=== PATIENT | female | born 1970 | race Two or more races ===

== ENCOUNTER 2017-05-03 06:28 | Day surgery (SDC) | payer BC ==
[2017-05-01 17:07] LABS: BASOPHILS # (AUTO) 0.4 K/uL (0.00-0.22); EOSINOPHILS # (AUTO) 0.1 K/uL (0-0.4); HEMATOCRIT 39.7 % (36-52); HEMOGLOBIN 13.6 g/dL (12.0-18.0); LYMPHOCYTES # (AUTO) 2.4 K/uL (2.0-11.5); MEAN CORPUSCULAR HEMOGLOBIN 31 pg (27-31); MEAN CORPUSCULAR HGB CONC 34 g/dL (33-37); MEAN CORPUSCULAR VOLUME 89 fL (80-94); MONOCYTES # (AUTO) 0.6 K/uL (0.8-1.0); NEUTROPHILS # (AUTO) 3.1 K/uL (1.8-7.7); PLATELET COUNT (AUTO) 294 K/uL (140-450); RED BLOOD CELL COUNT(AUTO) 4.45 MIL/uL (4.20-6.10); RED CELL DISTRIBUTION WIDTH 11.7 % (11.6-13.7); WHITE BLOOD COUNT (AUTO) 6.6 K/uL (4.8-10.8)
[2017-05-01 17:13] LABS: APPEARANCE,URINE CLEAR (CLEAR); BILIRUBIN,URINE NEGATIVE (NEGATIVE); BLOOD, URINE 1+ (NEGATIVE); COLOR,URINE YELLOW (YELLOW); LEUKOCYTE ESTERASE ,URINE NEGATIVE (NEGATIVE); NITRITE, URINE NEGATIVE (NEGATIVE); UGLUCOSE NEGATIVE (NEGATIVE)
[2017-05-01 17:33] LABS: RBC,URINE 0-5 (RARE) /HPF (0-5); WBC,URINE 0-5 (RARE) /HPF (0-5)
[~2017-05-03] VITALS: Ht 154.9 cm; Wt 65.8 kg
[2017-05-03] MEDS ORDERED: LIDOCAINE/EPI MPF 1%1:200000 30 ML VIAL INJ ONE (07:25)
[2017-05-03] MEDS ORDERED: NEOMYCIN/POLYMYXIN/BACITRACIN OIN 15 GM TUBE TP ONE (07:25)
[2017-05-03] MEDS ORDERED: PHENYLEPHRINE 1% 15 ML BTL NS ONE (07:25)
[2017-05-03] MEDS ORDERED: ROCURONIUM 50 MG/5 ML VIAL IV ONE (08:05)
[2017-05-03] MEDS ORDERED: DESFLURANE 240 ML BTL INH ONE (08:05)
[2017-05-03] MEDS ORDERED: GLYCOPYRROLATE 0.2 MG/ML VIAL ONE (08:05)
[2017-05-03] MEDS ORDERED: DEXAMETHASONE 4 MG/ML VIAL ONE (08:05)
[2017-05-03] MEDS ORDERED: ONDANSETRON 4 MG/2 ML VIAL ONE (08:05)
[2017-05-03] MEDS ORDERED: PROPOFOL 200 MG/20 ML VIAL IV ONE (08:05)
[2017-05-03] MEDS ORDERED: NEOSTIGMINE 1:1000 10 MG/10 ML VIAL ONE (08:05)
[2017-05-03] MEDS ORDERED: HYDROmorphone PFS 2 MG/ML SYR ONE (08:14)
[2017-05-03] MEDS ORDERED: fentaNYL 0.05 MG/ML VIAL ONE (08:14)
[2017-05-03] MEDS ORDERED: ceFAZolin 1,000 MG VIAL ONE (08:23)
[2017-05-03] MEDS ORDERED: HYDROmorphone 1 MG/ML AMP IVP PRN (08:35)
[2017-05-03] MEDS ORDERED: ONDANSETRON 4 MG/2 ML VIAL IVP PRN (08:35)
[2017-05-03] MEDS ORDERED: ACETAMIN/CODEINE 120/12MG-5ML 5 ML UDC PO PRN (09:00)
[2017-05-03] MEDS ORDERED: PROMETHAZINE 25 MG/ML VIAL IVP PRN (09:00)
[2017-05-03] MEDS ORDERED: MEPERIDINE 50 MG/ML SYR IVP PRN (09:00)
[2017-05-03] MEDS ORDERED: guaiFENesin DM 200/20 MG-10 ML 10 ML UDC PO PRN (09:00)
== END 2017-05-03 10:58 | disposition home or self-care (01) ==
LOC: MDS 06:28 → MMU 06:29 → EDSEX 08:00 → MDS 10:58
PROVIDERS: ATTEND Otolaryngology
DX: J34.2 Deviated nasal septum (principal); J34.3 Hypertrophy of nasal turbinates; J45.909 Unspecified asthma, uncomplicated; Z98.890 Other specified postprocedural states; Z82.49 Family history of ischemic heart disease and other diseases of the circulatory system; Z83.0 Family history of human immunodeficiency virus [HIV] disease
CPT/HCPCS: 30140; 30520; 30999; 36415; 71010; 81001; 81025; 85025; 88304; 93005; J0690; J1100; J1170; J2001; J2405; J2704; J2710; J3010; J3490; J7120